=== PATIENT | male | born 1965 | race Hispanic/Latino ===

== ENCOUNTER → 2017-06-21 | Outpatient (CLI) | payer BC | END | disposition home or self-care (01) | LOC: RAH 10:15 | PROVIDERS: ATTEND Internal Medicine | DX: M47.896 Other spondylosis, lumbar region (principal); M79.631 Pain in right forearm; M25.521 Pain in right elbow | CPT/HCPCS: 72100; 73080; 73090 ==

== ENCOUNTER → 2023-04-01 | Outpatient (CLI) | payer BC | END | disposition home or self-care (01) | LOC: SHCH 12:34 | PROVIDERS: ATTEND Internal Medicine | DX: I25.10 Atherosclerotic heart disease of native coronary artery without angina pectoris (principal); I87.2 Venous insufficiency (chronic) (peripheral) | CPT/HCPCS: 93970 ==

== ENCOUNTER → 2023-04-08 | Outpatient (CLI) | payer BC | END | disposition home or self-care (01) | LOC: SHCH 13:45 | PROVIDERS: ATTEND Internal Medicine | DX: I25.10 Atherosclerotic heart disease of native coronary artery without angina pectoris (principal); I10 Essential (primary) hypertension | CPT/HCPCS: 93306 ==